=== PATIENT | male | born 1930 | race Caucasian/White ===

== ENCOUNTER 2017-11-08 06:33 | Emergency (ER) | payer MEDICARE ==
[~2017-11-08] VITALS: Ht 172.7 cm; Wt 71.6 kg
[~2017-11-08 06:33] MED LIST: ALLO1TAB51 PO; ATOR-24 PO; EPGI10M SC; HYDR12.55 PO; ISOS120T5 PO; OMEP40CA41 PO; RANO1000 PO
[2017-11-08 06:41] VITALS: TEMP 36.7; Ht 172.7 cm; Wt 71.6 kg
--- NOTE | 2017-11-08 06:49 | EMERGENCY ROOM VISIT NOTE ---
History Report prepared by Lexii: Shaye Lowe Under the Supervision of: Dr. Vic Dawson M.D. First contact with patient: 06:35 Chief Complaint: FALL Stated Complaint: FALL History of Present Illness The patient is an 87 year old male who presents to the Emergency Room with complaints of a resolved fall that occurred about an hour prior to arrival. The patient describes his pain as "mild." The patient reports he was sitting in his chair last night when he got up to use the bathroom and tripped over the carpet. He notes he landed on his nose which started bleeding but it has now resolved. He states he has some pain on his forehead where there is a bruise. The patient lives at home and notes he has been walking around since the fall. 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 Review of Systems See HPI for pertinent positives & negatives. A total of 10 systems reviewed and were otherwise negative. 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) (12) Right common iliac aneurysm repair Surgical Problems: (1) H/O hemorrhoidectomy (2) H/O inguinal hernia repair (3) H/O knee surgery (4) History of tonsillectomy and adenoidectomy (5) Hx of cataract surgery (6) S/P AAA repair Family History Gallbladder disease Heart disease Hypertension Kidney disease Kidney stones Social History Smoking Status: Former Smoker Alcohol Use: none Marital Status: Housing Status: lives with family Current/Historical Medications Scheduled Allopurinol (Allopurinol), 100 MG PO 3XWK Aspirin (Aspir-81), 81 MG PO DAILY Calcium Carbonate-Cholecalcife (Caltrate 600+D), 1 TAB PO HS Carvedilol (Coreg), 6.25 MG PO DAILY Cholecalciferol (Vitamin D3), 2,000 UNITS PO DAILY Epoetin Omari (Procrit), 1 DOSE INJ UD Ferrous Sulfate (Ferrous Sulfate), 325 MG PO BID Fluticasone Propionate (Fluticasone Propionate), 2 SPRAYS SMITHA HS Folic Acid (Folvite), 1 MG PO DAILY Furosemide (Lasix), 20 MG PO 3XWK Hydrocortisone (Topical) (Hydrocortisone), 1 APPLN TOP BID Isosorbide Mononitrate (Isosorbide Mononitrate ER), 60 MG PO QPM Isosorbide Mononitrate Ext Rel (Imdur Ext Rel), 120 MG PO QAM Leuprolide Acetate (6 Month) (Lupron Depot), 45 MG INJ [id number] Levothyroxine Sodium (Synthroid), 75 MCG PO DAILY Lisinopril (Lisinopril), 2.5 MG PO DAILY Omeprazole (Prilosec), 40 MG PO DAILY Polyethylene Glycol 3350 (Miralax), 17 GM PO MWF Prednisone (Prednisone), 2.5 MG PO DAILY Ranolazine (Ranexa), 1 TAB PO BID Rosuvastatin Calcium (Crestor), 40 MG PO HS Saline (Saline Nasal [place]), 2 SPRAYS NA DAILY Senna/Docusate Sod (Senokot S), 1 TAB PO BID Tamsulosin Hcl (Flomax), 0.4 MG PO QPM Terbinafine Hcl (Topical) (Lamisil At), 1 APPL TOP HS Scheduled PRN Nitroglycerin (Nitroglycerin Lingual), 1 SPRAY PO DIRECTED PRN for Chest Pain Allergies Coded Allergies: Imipramine (Verified Allergy, Unknown, unk, 11/08/17) per pcp office Naproxen (Verified Allergy, Unknown, unk, 11/08/17) per pcp Physical Exam Vital Signs Date Time Temp Pulse Resp B/P (MAP) Pulse Ox O2 Delivery O2 Flow Rate FiO2 11/08/17 09:35 71 16 126/67 98 11/08/17 08:37 87 18 137/68 98 Room Air 11/08/17 06:41 36.7 76 20 130/72 93 Room Air Physical Exam GENERAL: Awake, alert, well-appearing, in no acute distress HENT: Normocephalic. Oropharynx unremarkable. Quarter sized contusion of forehead, no blood in the back of throat, no evidence of bleeding to bilateral naris. Bridge of nose is swollen. EYES: Normal conjunctiva. Sclera non-icteric. NECK: Supple. No nuchal rigidity. FROM. No JVD. RESPIRATORY: Clear to auscultation. CARDIAC: Regular rate, normal rhythm. Extremities warm and well perfused. Pulses equal. ABDOMEN: Soft, non-distended. No tenderness to palpation. No rebound or guarding. No masses. RECTAL: Deferred. MUSCULOSKELETAL: Chest examination reveals no tenderness. The back is symmetrical on inspection without obvious abnormality. There is no CVA tenderness to palpation. No joint edema. LOWER EXTREMITIES: Calves are equal size bilaterally and non-tender. No edema. No discoloration. NEURO: Normal sensorium. No sensory or motor deficits noted. SKIN: No rash or jaundice noted. Medical Decision & Procedures ER Provider Diagnostic Interpretation: Radiology results as stated below per my review and radiologist interpretation: CT SCAN OF THE FACIAL BONES WITHOUT IV CONTRAST CLINICAL HISTORY: Facial injury. COMPARISON STUDY: CT of the brain performed concurrently on 11/08/2017. TECHNIQUE: High-resolution CT scan of the facial bones is performed. Images are reviewed in the axial, sagittal, and coronal planes. IV contrast was not administered for this examination. A dose lowering technique was utilized adhering to the principles of ALARA. FINDINGS: The skeletal structures are osteopenic. There is no evidence of facial bone fracture. The bony orbits are intact and the orbital contents are within normal limits noting bilateral ocular lens implants. There is age indeterminant deformity of the right nasal bone. No overlying soft tissue edema is identified. The zygomatic arches and pterygoid plates are preserved. The maxilla and mandible are intact. Degenerative changes noted in the temporomandibular joints. There are no layering blood products within the paranasal sinuses. Trace mucosal thickening is seen in the maxillary antra and the ethmoid sinuses. The remaining paranasal sinuses are clear. There is a trace right mastoid effusion. A left mastoid air cells are well pneumatized. The visualized calvarium appears intact. The imaged upper cervical spine appears maintained noting multilevel spondylosis. Partially imaged brain parenchyma is within normal limits noting age-related involutional change. Numerous dental caries are identified. There is atherosclerotic calcification of the cavernous carotid arteries. There is a small frontal scalp hematoma. IMPRESSION: 1. No acute facial bone fracture is identified. 2. There is age indeterminant and likely chronic deformity of the right nasal bone. 3. Frontal scalp hematoma. 4. Numerous dental caries are identified. Follow-up with dentistry is recommended. Electronically signed by: Rober Hoffman M.D. 11/08/2017 7:20 AM Dictated Date/Time: 11/08/2017 7:16 AM HEAD WITHOUT CONTRAST (CT) CLINICAL HISTORY: 87 years-old Male presenting with Pt c/o fall, bruise to head, abrasions to nose. TECHNIQUE: Multidetector CT imaging of the head was performed without the use of intravenous contrast. IV contrast: None. A dose lowering technique was used consistent with the principles of ALARA (as low as reasonably achievable). COMPARISON: 12/04/2014. CT DOSE (mGy.cm): The estimated cumulative dose is 1205.13 mGy.cm. 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 Proportional ventricular and sulcal prominence, likely age-related parenchymal volume loss. Brain parenchyma normal in appearance with preserved morrell-white differentiation. Old lacunar infarct in the right basal ganglia suspected, unchanged from prior. 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 No mass effect or midline shift. No hemorrhage or acute territorial infarct. No extra-axial fluid collection. Paranasal sinuses and mastoid air cells clear. Calvarium intact. Intracranial atherosclerosis noted. Infiltration and swelling of the paramedian left frontal scalp with small superficial or subgaleal hematoma. No gross evidence of a nasal bone fracture, however, please see separately dictated CT face. IMPRESSION: 1. No acute intracranial abnormality. 2. Left frontal scalp contusion with small superficial or subgaleal hematoma. 3. Chronic findings as above. Electronically signed by: Carl Ocampo M.D. 11/08/2017 7:12 AM Dictated Date/Time: 11/08/2017 7:09 AM ED Course 0636: Past medical records reviewed. The patient was evaluated in room B9. A complete history and physical examination was performed. 0725: I updated the patient on his test results at this time. 0730: Upon reexamination the patient is resting comfortably. I discussed results and treatment plan with the patient. He verbalizes agreement and understanding. The patient is ready for discharge. Medical Decision Differential diagnosis: Etiologies such as fracture, dislocation, intra-abdominal, pneumothorax, intrathoracic , intracranial, neurologic, as well as other traumatic pathologies were entertained. This is an 87-year-old male who presents the emergency department complaining of pain to his nose after fall at home. Upon arrival to the emergency department the patient is conscious alert and oriented. He was sent for CAT scan of the head and facial bones. This does not show any evidence of acute fracture. Patient does have [address] old infar[address] on CT of the head. I did discuss this with the patient. He wishes to be discharged home for follow-up with his primary care physician for the strokes. Patient was in agreement with the treatment plan. Medication Reconcilliation Current Medication List: was personally reviewed by me Blood Pressure Screening Patient's blood pressure: Normal blood pressure Impression Primary Impression: Fall Additional Impressions: Nosebleed Head injury Scribe Attestation The scribe's documentation has been prepared under my direction and personally reviewed by me in its entirety. I confirm that the note above accurately reflects all work, treatment, procedures, and medical decision making performed by me. Departure Information Dispostion Home / Self-Care Referrals Trixie Sánchez M.D. (PCP) Patient Instructions My [facility] Additional Instructions Follow up with DR Sánchez for stroke findings on CT scan (old) You have been examined and treated today on an emergency basis only. This is not a substitute for, or an effort to provide, complete comprehensive medical care. It is impossible to recognize and treat all injuries or illnesses in a single emergency department visit. It is therefore important that you follow up closely with Dr Sánchez. Call as soon as possible for an appointment. Thank you for your time and consideration. I look forward to speaking with you again soon. Please don't hesitate to call us if you have any questions. Problem Qualifiers Primary Impression: Fall Encounter type: initial encounter Qualified Codes: W19.XXXA - Unspecified fall, initial encounter Additional Impressions: Head injury Encounter type: initial encounter Qualified Codes: S09.90XA - Unspecified injury of head, initial encounter
[2017-11-08] MEDS ORDERED: TAMS0.4C38 PO (07:09)
--- NOTE | 2017-11-08 07:14 | DIAGNOSTIC IMAGING REPORT ---
HEAD WITHOUT CONTRAST (CT) CLINICAL HISTORY: 87 years-old Male presenting with Pt c/o fall, bruise to head, abrasions to nose. TECHNIQUE: Multidetector CT imaging of the head was performed without the use of intravenous contrast. IV contrast: None. A dose lowering technique was used consistent with the principles of ALARA (as low as reasonably achievable). COMPARISON: 12/04/2014. CT DOSE (mGy.cm): The estimated cumulative dose is 1205.13 mGy.cm. 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 Proportional ventricular and sulcal prominence, likely age-related parenchymal volume loss. Brain parenchyma normal in appearance with preserved morrell-white differentiation. Old lacunar infarct in the right basal ganglia suspected, unchanged from prior. 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 No mass effect or midline shift. No hemorrhage or acute territorial infarct. No extra-axial fluid collection. Paranasal sinuses and mastoid air cells clear. Calvarium intact. Intracranial atherosclerosis noted. Infiltration and swelling of the paramedian left frontal scalp with small superficial or subgaleal hematoma. No gross evidence of a nasal bone fracture, however, please see separately dictated CT face. IMPRESSION: 1. No acute intracranial abnormality. 2. Left frontal scalp contusion with small superficial or subgaleal hematoma. 3. Chronic findings as above. Electronically signed by: Carl Ocampo M.D. 11/08/2017 7:12 AM Dictated Date/Time: 11/08/2017 7:09 AM
--- NOTE | 2017-11-08 07:22 | DIAGNOSTIC IMAGING REPORT ---
CT SCAN OF THE FACIAL BONES WITHOUT IV CONTRAST CLINICAL HISTORY: Facial injury. COMPARISON STUDY: CT of the brain performed concurrently on 11/08/2017. TECHNIQUE: High-resolution CT scan of the facial bones is performed. Images are reviewed in the axial, sagittal, and coronal planes. IV contrast was not administered for this examination. A dose lowering technique was utilized adhering to the principles of ALARA. FINDINGS: The skeletal structures are osteopenic. There is no evidence of facial bone fracture. The bony orbits are intact and the orbital contents are within normal limits noting bilateral ocular lens implants. There is age indeterminant deformity of the right nasal bone. No overlying soft tissue edema is identified. The zygomatic arches and pterygoid plates are preserved. The maxilla and mandible are intact. Degenerative changes noted in the temporomandibular joints. There are no layering blood products within the paranasal sinuses. Trace mucosal thickening is seen in the maxillary antra and the ethmoid sinuses. The remaining paranasal sinuses are clear. There is a trace right mastoid effusion. A left mastoid air cells are well pneumatized. The visualized calvarium appears intact. The imaged upper cervical spine appears maintained noting multilevel spondylosis. Partially imaged brain parenchyma is within normal limits noting age-related involutional change. Numerous dental caries are identified. There is atherosclerotic calcification of the cavernous carotid arteries. There is a small frontal scalp hematoma. IMPRESSION: 1. No acute facial bone fracture is identified. 2. There is age indeterminant and likely chronic deformity of the right nasal bone. 3. Frontal scalp hematoma. 4. Numerous dental caries are identified. Follow-up with dentistry is recommended. Electronically signed by: Rober Hoffman M.D. 11/08/2017 7:20 AM Dictated Date/Time: 11/08/2017 7:16 AM
[2017-11-08] MEDS ORDERED: [UNRECOGNIZED DRUG - CODE] INJ (08:16)
[2017-11-08] MEDS ORDERED: RANO1000 PO (08:16)
[2017-11-08] MEDS ORDERED: TERB1CRE32 TOP (08:16)
[2017-11-08] MEDS ORDERED: HYDR2.5L TOP (08:16)
[2017-11-08] MEDS ORDERED: FLNIN NAE (08:16)
[2017-11-08] MEDS ORDERED: PRD/25 PO (08:16)
[2017-11-08] MEDS ORDERED: ROSU40TA PO (08:16)
[2017-11-08] MEDS ORDERED: ALL100 PO (08:16)
[2017-11-08 09:35] VITALS: BP 126/67; PULSE 71; O2SAT 98
[2017-11-08] MEDS ORDERED: LEVO75TA PO (09:41)
[2017-11-08] MEDS ORDERED: FOLI1TAB8 PO (10:04)
[2017-11-08] MEDS ORDERED: ISOS-10 PO (10:04)
[2017-11-08] MEDS ORDERED: FERR325T5 PO (10:04)
[2017-11-08] MEDS ORDERED: SENN-65 PO (10:04)
[2017-11-08] MEDS ORDERED: ASPI-232 PO (10:31)
[2017-11-08] MEDS ORDERED: FURO-85 PO (12:19)
[2017-11-08] MEDS ORDERED: LSN25 PO (12:19)
[2017-11-08] MEDS ORDERED: CHOL20007 PO (14:42)
[2017-11-08] MEDS ORDERED: CALC-354 PO (15:14)
[2017-11-08] MEDS ORDERED: POLY335019 PO (15:19)
[2017-11-08] MEDS ORDERED: NITR0.1S PO (21:04)
[2017-11-08] MEDS ORDERED: CARV6.25 PO (21:04)
[2017-11-08] MEDS ORDERED: SALI-3 (21:07)
[2017-11-08] MEDS ORDERED: LEUP1INJ6 INJ (21:07)
== END 2017-11-08 09:35 | disposition home or self-care (01) ==
LOC: EDBD 06:33 → C.EDB 06:34
DX: S00.83XA Contusion of other part of head, initial encounter (principal); R04.0 Epistaxis; W01.198A Fall on same level from slipping, tripping and stumbling with subsequent striking against other object, initial encounter; I10 Essential (primary) hypertension; Z87.891 Personal history of nicotine dependence; Z79.82 Long term (current) use of aspirin; Z79.52 Long term (current) use of systemic steroids; Z79.899 Other long term (current) drug therapy; Z88.1 Allergy status to other antibiotic agents; Z88.8 Allergy status to other drugs, medicaments and biological substances